=== PATIENT | female | born 1955 | race Caucasian/White ===

== ENCOUNTER 2021-09-05 13:46 | Observation (INO) ==
[2021-09-05] MEDS ORDERED: Aspirin 81 MG TAB.CHEW PO ONE (14:06)
[2021-09-05 14:19] LABS: Eosinophils # 0.1 K/mcL (0.0-0.6); Eosinophils % 1.5 %; Hematocrit 38.9 % (35.3-44.9); Hemoglobin 12.9 g/dL (11.5-15.4); Immature Granulocytes % 0.5 % (0-4); Lymphocytes # 0.2 K/mcL (0.6-4.6); Lymphocytes % 5.7 %; Mean Corpuscular HGB Conc 33.2 g/dL (31.6-35.5); Mean Corpuscular Hemoglobin 28.1 pg (28.0-33.3); Mean Corpuscular Volume 84.7 fL (83.0-100.0); Mean Platelet Volume 10.6 fL (9.4-12.4); Monocytes # 0.5 K/mcL (0.0-1.3); Monocytes % 13.2 %; Neutrophils # 3.2 K/mcL (1.6-8.9); Platelet Count 142 K/mcL (140-400); Red Blood Count 4.59 M/mcL (3.82-4.97); Red Cell Distribution Width 12.7 % (11.5-14.5); Segmented Neutrophils % 78.1 %
[2021-09-05 14:31] LABS: INR 1.1
[2021-09-05 14:41] LABS: BUN/Creatinine Ratio 15 (6-26); Blood Urea Nitrogen 14 mg/dL (8-23); Calcium 9.2 mg/dL (8.6-10.3); Carbon Dioxide 23 mEq/L (23-29); Chloride 104 mEq/L (98-107); Glucose 117 mg/dL (70-105); Osmolality,Calculated 274 (280-300); Potassium 3.9 mEq/L (3.5-5.1); Sodium 131 mEq/L (136-145); eGFR For African Americans > 60 (> 60); eGFR For Non-African Americans > 60 (> 60)
[2021-09-05 14:42] LABS: Troponin I < 0.03 ng/mL (< 0.04)
[2021-09-05] MEDS: Nitroglycerin 0.4 MG TAB.SUBL SL SCH ×2 (14:44→18:06)
[2021-09-05] MEDS ORDERED: Mag Hydrox/Al Hydrox/Simeth 30 ML UDC PO PRN (17:27)
[2021-09-05] MEDS ORDERED: Melatonin 3 MG TABLET PO PRN (17:27)
[2021-09-05] MEDS ORDERED: Naloxone 0.4 MG/ML INJ IVP PRN (17:27)
[2021-09-05] MEDS ORDERED: Ondansetron ODT 4 MG TAB.RAPDIS SL PRN (17:27)
[2021-09-05] MEDS ORDERED: MOM Conc 10 ML UD.LIQ PO PRN (17:27)
[2021-09-05] MEDS ORDERED: GI Cocktail 40 ML EACH PO ONE (17:30)
[2021-09-05] MEDS ORDERED: Perflutren Lipid Microsphere 1.3 ML in 0.9 % Sodium Chloride 8.7 ML IVP PRN (17:30)
[2021-09-05] MEDS ORDERED: ALPRAZolam 0.5 MG TABLET PO PRN (17:30)
[2021-09-05] MEDS: Acetaminophen 325 MG TABLET PO PRN (19:59)
[2021-09-05] MEDS: carvediloL 6.25 MG TABLET PO SCH (20:13)
[2021-09-06 02:30] LABS: Hematocrit 36.3 % (35.3-44.9); Hemoglobin 12.1 g/dL (11.5-15.4); Mean Corpuscular HGB Conc 33.3 g/dL (31.6-35.5); Mean Corpuscular Hemoglobin 28.5 pg (28.0-33.3); Mean Corpuscular Volume 85.6 fL (83.0-100.0); Mean Platelet Volume 10.7 fL (9.4-12.4); Platelet Count 121 K/mcL (140-400); Red Blood Count 4.24 M/mcL (3.82-4.97); Red Cell Distribution Width 12.8 % (11.5-14.5); White Blood Count 2.5 K/mcL (4.3-11.1)
[2021-09-06] MEDS: Acetaminophen 325 MG TABLET PO PRN (02:41)
[2021-09-06 02:49] LABS: BUN/Creatinine Ratio 15 (6-26); Blood Urea Nitrogen 15 mg/dL (8-23); Calcium 8.4 mg/dL (8.6-10.3); Carbon Dioxide 25 mEq/L (23-29); Chloride 104 mEq/L (98-107); Chol/HDL Ratio 4.4 (0-4.9); Glucose 113 mg/dL (70-105); Osmolality,Calculated 284 (280-300); Potassium 3.7 mEq/L (3.5-5.1); Sodium 136 mEq/L (136-145); eGFR For African Americans > 60 (> 60); eGFR For Non-African Americans 58 (> 60)
[2021-09-06 02:56] LABS: Estimated Average Glucose 117 mg/dl; Hemoglobin A1C 5.7 %
[2021-09-06] MEDS ORDERED: *HR* Enoxaparin 40 MG/0.4 ML SYRINGE SQ SCH (06:00)
[2021-09-06] MEDS ORDERED: Regadenoson 0.4 MG/5 ML SYRINGE IVP ONE (07:13)
[2021-09-06] MEDS ORDERED: carvediloL 6.25 MG TABLET PO SCH (08:00)
[2021-09-06] MEDS ORDERED: Letrozole 2.5 MG TABLET PO SCH (09:00)
[2021-09-06] MEDS ORDERED: amLODIPine 5 MG TABLET PO SCH (09:00)
[2021-09-06] MEDS ORDERED: Aspirin 81 MG TAB.CHEW PO SCH (09:00)
[2021-09-06 10:34] VITALS: BP 125/77; PULSE 74; TEMP 98.2; O2SAT 95
[2021-09-06] MEDS: carvediloL 6.25 MG TABLET PO SCH (10:36)
== END 2021-09-06 15:18 | disposition home or self-care (01) ==
LOC: EMEROOARM 13:46 → 3BNU 13:46 → SUATTDRO 17:04 → 3BNU 17:58
PROVIDERS: ADMIT Internal Medicine; ATTEND Registered Nurse